=== PATIENT | female | born 1985 | race Caucasian/White ===

== ENCOUNTER 2024-03-08 08:25 | Day surgery (SDC) | payer BC ==
[2024-03-08 09:13] LABS: APPEARANCE,URINE CLEAR (Clear); BILIRUBIN,URINE NEGATIVE (Negative); COLOR,URINE YELLOW (Yellow); GLUCOSE,URINE NEGATIVE (Negative); KETONES,URINE 3+ (Negative); LEUKOCYTE ESTERASE,URINE NEGATIVE (Negative); NITRITE,URINE NEGATIVE (Negative); OCCULT BLOOD,URINE 1+ (Negative); PROTEIN,URINE TRACE (Negative); UROBILINOGEN,URINE 0.2 (0.2-1.0)
[2024-03-08] MEDS: Sodium Chloride 0.9% 10 ML Syringe FLUSH ONE (09:13)
[2024-03-08] MEDS: Iopamidol 612 MG/ML 100 ML Bottle IVPUSH ONE (09:13)
[2024-03-08 09:15] LABS: BASOPHILS PERCENT AUTO 0.4 % (0.0-1.0); EOSINOPHILS PERCENT AUTO 0.1 % (0.0-6.0); HEMATOCRIT 42.3 % (37.0-47.0); HEMOGLOBIN 14.3 gm/dl (12.0-16.0); IMMATURE GRAN ABSOLUTE AUTO 0.02 K/mm3 (0.00-0.05); IMMATURE GRAN PERCENT AUTO 0.2 % (0.0-0.4); LYMPHOCYTES ABSOLUTE AUTO 1.5 K/mm3 (1.0-4.8); LYMPHOCYTES PERCENT AUTO 17.3 % (24.0-44.0); MEAN CORPUSCULAR HEMOGLOBIN 30.4 pg (28.0-32.0); MEAN CORPUSCULAR HGB CONC 33.8 g/dl (32.0-36.0); MEAN PLATELET VOLUME 10.5 fl (9.4-12.3); MONOCYTES ABSOLUTE AUTO 0.5 K/mm3 (0.0-0.8); MONOCYTES PERCENT AUTO 6.1 % (0.0-8.0); NEUTROPHILS ABSOLUTE AUTO 6.4 K/mm3 (1.8-7.7); NEUTROPHILS PERCENT AUTO 75.9 % (41.0-71.0); PLATELET COUNT,PLT 206 K/mm3 (150-400); WHITE BLOOD CELL COUNT,WBC 8.38 K/mm3 (3.9-11.3)
[2024-03-08 09:20] LABS: BACTERIA,URINE MANY /hpf (FEW); MUCUS,URINE MODERATE /hpf (FEW); SQUAMOUS EPITHELIAL CELLS,UR 30-40 /hpf (0-5); WBC,URINE 0-5 /hpf (0-5)
[2024-03-08] MEDS: Sodium Chloride 0.9% 1,000 ML IV ONE (09:29)
[2024-03-08] MEDS: Ketorolac 30 MG/ML SDV IVPUSH ONE (09:30)
[2024-03-08] MEDS: Famotidine 20 MG/2 ML SDV IVPUSH ONE (09:30)
[2024-03-08] MEDS: Ondansetron 4 MG/2 ML SDV IVPUSH ONE (09:31)
[2024-03-08 09:37] LABS: A/G RATIO 1.2 (1-2); BILIRUBIN TOTAL 0.8 mg/dL (0.2-1.0); BUN/CREATININE RATIO 11.3 (14-18); C-REACTIVE PROTEIN 0.21 mg/dL (<0.30); CALCIUM 9.5 mg/dL (8.5-10.1); CREATININE 0.8 mg/dL (0.55-1.02); EST CRCL DRUG DOSING (CG) 91.81 mL/min; MAGNESIUM 1.8 mg/dL (1.8-2.4); PROTEIN TOTAL,TP 7.3 g/dl (6.4-8.2)
[2024-03-08 09:58] LABS: LACTIC ACID 0.6 mmol/L (0.4-2.0)
[2024-03-08] MEDS: cefTRIAXone 1 GM Vial IVPUSH ONE (11:21)
[2024-03-08] MEDS ORDERED: Midazolam 1 MG/ML 2 ML SDV ONE (12:05)
[2024-03-08] MEDS ORDERED: Propofol 200 MG/20 ML SDV ONE (12:05)
[2024-03-08] MEDS ORDERED: fentaNYL 250 MCG/5 ML SDV ONE (12:05)
[2024-03-08] MEDS ORDERED: Dexamethasone 4 MG/ML 5 ML MDV ONE (12:07)
[2024-03-08] MEDS ORDERED: Rocuronium 50 MG/5 ML Vial ONE (12:07)
[2024-03-08] MEDS ORDERED: Ondansetron 4 MG/2 ML SDV ONE (12:07)
[2024-03-08] MEDS ORDERED: fentaNYL 100 MCG/2 ML SDV ONE (12:37)
[2024-03-08] MEDS ORDERED: fentaNYL 100 MCG/2 ML SDV IVPUSH PRN (13:04)
[2024-03-08] MEDS ORDERED: Ondansetron 4 MG/2 ML SDV IVPUSH PRN (13:04)
[2024-03-08] MEDS ORDERED: HYDROmorphone 0.5 MG/0.5 ML Syringe IVPUSH PRN (13:04)
[2024-03-08] MEDS ORDERED: Sugammadex Sodium 200 MG/2 ML VIAL IV ONE (13:15)
[2024-03-08] MEDS: EPINEPHrine 1 MG/ML SDV ONE (13:38)
[2024-03-08] MEDS: Bupivacaine 0.5% 30 ML SDV ONE (13:38)
[2024-03-08] MEDS: Lactated Ringers 1,000 ML IV SCH (14:50)
== END 2024-03-08 16:08 | disposition home or self-care (01) ==
LOC: JD.ED 08:25 → JD.SDS 12:03
PROVIDERS: ATTEND Surgery
DX: K80.12 Calculus of gallbladder with acute and chronic cholecystitis without obstruction (principal); J45.909 Unspecified asthma, uncomplicated; Z88.0 Allergy status to penicillin; Z91.040 Latex allergy status
CPT/HCPCS: 36415; 47562; 74177; 76705; 80053; 81001; 83605; 83690; 83735; 84484; 84703; 85025; 86140; 93005; 96361; 96374; 96375; 99285; C1713; J0171; J0665; J0696; J1100; J1885; J2250; J2405; J2704; J3010; J3490; J7030; J7120; Q9967; 00790; 93010; 99284